=== PATIENT | female | born 1990 ===

== ENCOUNTER → 2017-03-09 | Outpatient (REF) | payer MEDICAID | LOC: M LAB REF 16:25 | DX: Z34.82 Encounter for supervision of other normal pregnancy, second trimester (principal) ==

== ENCOUNTER → 2017-03-23 | Outpatient (REF) | payer MEDICAID | LOC: M LAB REF 14:08 | DX: Z34.82 Encounter for supervision of other normal pregnancy, second trimester (principal) ==